=== PATIENT | male | born 1990 | race Caucasian/White ===

== ENCOUNTER 2021-10-02 15:23 | Emergency (ER) | payer SELFPAY ==
[~2021-10-02] VITALS: Ht 185.4 cm; Wt 79.4 kg
[2021-10-02 15:27] VITALS: BP 114/69
--- NOTE | 2021-10-02 15:30 | NUR ---
PT TRANSFERED TO BED 12 FROM [facility]
--- NOTE | 2021-10-02 15:45 | NUR ---
ANDREWS AT BEDSIDE ASSESSING PT
[2021-10-02 15:58] LABS: BASOPHILS % (AUTO) 0.4 % (0.0-2.0); EOSINOPHILS # (AUTO) 0.1 K/uL (0-0.4); EOSINOPHILS % (AUTO) 0.8 % (0.0-4.0); HEMATOCRIT 38.9 % (36-52); HEMOGLOBIN 12.7 g/dL (12.0-18.0); LYMPHOCYTES # (AUTO) 1.4 K/uL (2.0-11.5); LYMPHOCYTES % (AUTO) 19.5 % (20.5-51.1); MEAN CORPUSCULAR HEMOGLOBIN 28 pg (27-31); MEAN CORPUSCULAR HGB CONC 33 g/dL (33-37); MONOCYTES # (AUTO) 0.4 K/uL (0.8-1.0); MONOCYTES % (AUTO) 5.7 % (1.7-9.3); NEUTROPHILS # (AUTO) 5.5 K/uL (1.8-7.7); NEUTROPHILS % (AUTO) 73.6 % (42.2-75.2); PLATELET COUNT (AUTO) 185 K/uL (140-450); RED BLOOD CELL COUNT(AUTO) 4.57 MIL/uL (4.20-6.10); WHITE BLOOD COUNT (AUTO) 7.4 K/uL (4.8-10.8)
--- NOTE | 2021-10-02 16:03 | NUR ---
BIBA C/O SYNCOPE , N/V AT WORK 25 MINS AGO. PER EMS BLOOD SUGAR 100.PT DENIES ANY PREVIOUS HISTORY OF SYNCOPE. DENIES ANY PAIN AT THE MOMNET. PT WAS USING THE RESTROOM WHEN HAD THE SYNCOPE EPISODE HAPPENED. PTS EMISIS WAS BROWN WITHOUT BLOOD; 400CC ON ARRIVAL. PT RESING IN BED. PMH: DENIES NKA
[2021-10-02 16:06] LABS: ANION GAP 10.1 (8-16); CARBON DIOXIDE 28.8 mmol/L (21-32); CREATININE 1.1 mg/dL (0.6-1.3); POTASSIUM 3.9 mmol/L (3.5-5.1)
[2021-10-02 16:12] LABS: ALBUMIN 3.7 g/dL (3.4-5.0); TOTAL BILIRUBIN 0.4 mg/dL (0.0-1.0)
--- NOTE | 2021-10-02 16:31 | NUR ---
PT UNABLE AT THIS TIME TO PROVIDE URINE.
[2021-10-02 17:58] VITALS: BP 110/63
--- NOTE | 2021-10-02 18:12 | NUR ---
PATIENT PASSED ROAD TEST, STATES "I FEEL MUCH BETTER." DENIES DIZZINESS OR HEADACHE.
--- NOTE | 2021-10-02 19:24 | NUR ---
GAVE REPORT TO AMANDA
--- NOTE | 2021-10-02 20:38 | NUR ---
PATIENT ELOPED FROM FACILITY. DISCHARGE INSTRUCTIONS NOT GIVEN TO PATIENT. NOTIFIED.
== END 2021-10-02 20:38 | disposition left against medical advice (07) ==
LOC: MED 15:23
DX: R55 Syncope and collapse (principal)
CPT/HCPCS: 36415; 71045; 80053; 84484; 85025; 93005; 99285; Q0092